=== PATIENT | female | born 1995 | race Caucasian/White ===

== ENCOUNTER → 2016-08-29 | Outpatient (CLI) | payer OTHER ==
[~2016-08-29] MED LIST: COLACE100 MG PO; IBUPROFEN600 MG PO
== END ==
LOC: US 12:30
DX: N64.89 Other specified disorders of breast (principal)
CPT/HCPCS: 76641-LT; 76641-RT

== ENCOUNTER → 2017-02-01 | Outpatient (CLI) | payer OTHER | LOC: RAD 08:00 | DX: K44.9 Diaphragmatic hernia without obstruction or gangrene (principal) | CPT/HCPCS: 74246 ==

== ENCOUNTER → 2021-09-01 | Outpatient (CLI) | payer BC | LOC: CT 13:41 | DX: R31.29 Other microscopic hematuria (principal) | CPT/HCPCS: Q9967 ==

== ENCOUNTER 2022-01-12 12:33 | Emergency (ER) | payer BC ==
[2022-01-12 13:59] LABS: RED BLOOD COUNT 4.9 M/UL (4.00-5.10); WHITE BLOOD COUNT 8.4 K/UL (4.5-11.0)
[2022-01-12 14:20] LABS: BUN/CREATININE RATIO 12 (0-10)
[2022-01-12] MEDS ORDERED: OMNICEF 300 MG300 MG PO (15:48)
== END 2022-01-12 16:10 | disposition home or self-care (01) ==
LOC: ER1 12:33
PROVIDERS: Student in an Organized Health Care Education/Training Program
DX: N39.0 Urinary tract infection, site not specified (principal); K21.9 Gastro-esophageal reflux disease without esophagitis; I10 Essential (primary) hypertension; Z87.440 Personal history of urinary (tract) infections
CPT/HCPCS: 76830; 80053; 81001; 83690; 84703; 85025; 87086; 99284